=== PATIENT | female | born 1995 | race Caucasian/White ===

== ENCOUNTER 2016-10-26 16:52 | Emergency (ER) | payer BC ==
[2016-10-26 16:53] VITALS: BMI 26.2
[2016-10-26 17:03] VITALS: TEMP 99.5
[2016-10-26] MEDS ORDERED: Sodium Chloride 0.9% 1,000 ML IV STA (17:23)
--- NOTE | 2016-10-26 17:31 | ED PDOC ---
Arrival/HPI - General Chief Complaint: GI Problem Time Seen by Provider: 10/26/16 17:06 Historian: Patient - History of Present Illness Narrative History of Present Illness (Text): 10/26/16 17:31 20 year old female presents to the emergency department with nausea/vomiting, abdominal cramping, and urinary urgency. Denies vaginal bleeding or dc, denies diaparunia, denies other complaints. Symptom Onset: Gradual Symptom Course: Unchanged Modifying Factors (Text): None Associated Symptoms (Text): None Past Medical History - Provider Review Nursing Documentation Reviewed: Yes - Tetanus Immunization Tetanus Immunization: Up to Date - Past Medical History Past Medical History: No Previous - Psychiatric Hx Psychophysiologic Disorder: No Hx Substance Use: Yes (CANNABIS) - Past Surgical History Past Surgical History: No Previous - Surgical History Other/Comment: BREAST IMPLANT - Suicidal Assessment Feels Threatened In Home Enviroment: No Family/Social History - Physician Review Nursing Documentation Reviewed: Yes Family/Social History: Unknown Family HX Smoking Status: Former Smoker Hx Alcohol Use: Yes Frequency of alcohol use: Socially Hx Substance Use: Yes (CANNABIS) Hx Substance Use Treatment: No Allergies/Home Meds Allergies/Adverse Reactions: Allergies No Known Allergies Allergy (Verified 10/26/16 16:55) Review of Systems - Physician Review All systems were reviewed & negative as marked: Yes Physical Exam - Physical Exam Narrative Physical Exam (Text): - Review of Systems Constitutional: Normal. absent: Fatigue, Weight Change, Fevers Eyes: Normal ENT: Normal Respiratory: Normal absent: SOB, Cough, Sputum Cardiovascular: Normal absent: Chest pain, Palpitations, Syncope Gastrointestinal: Nausea, Vomiting, Abdominal cramping absent: Diarrhea Genitourinary: Urgency absent: Dysuria, Frequency, Hematuria Musculoskeletal: Normal. absent: Arthralgias, Back Pain, Neck Pain Skin: Normal Neurological: Normal absent: Focal Weakness Endocrine: Normal Hemo/Lymphatic: Normal Psychiatric: Normal - Physical exam Patient appears age appropriate, speaking full sentences without difficulty - Systems Exam Head: Present: Atraumatic, Normocephalic Pupils: Present: PERRL Extraocular Muscles: Present: EOMI Conjunctiva: Present: Normal Mouth: Present: Moist Mucous Membranes Neck: Present: Normal Range of Motion. No: MIDLINE TENDERNESS, Paraspinal Tenderness Respiratory/Chest: Present: Clear to Auscultation, Good Air Exchange. No: Respiratory Distress, Accessory Muscle Use, Tachypneic Cardiovascular: Present: Regular Rate and Rhythm, Normal S1, S2, Peripheral Pulses Present. No: Murmurs Abdomen: Present: Normal Bowel Sounds, No: Tenderness, Peritoneal Signs, Rebound, Guarding, Distention Back: Present: Normal Inspection. No: Midline Tenderness, Paraspinal Tenderness Upper Extremity: Present: Normal Inspection. No: Cyanosis, Edema Lower Extremity: Present: Normal Inspection. No: Edema Neurological: Present: GCS=15, Speech Normal, cranial nerves II through XII fully intact with no cerebellar abnormality, neuro-sensory fully intact. No focal neurological deficits. Skin: Present: Warm, Dry, Normal Color. No: Rashes Lymphatic: Present: OX3, NI, NC Psychiatric: Present: Alert, Oriented x 3, Normal Insight, Normal Concentration Vital Signs Reviewed: Yes Vital Signs Temp Pulse Resp BP Pulse Ox 10/26/16 18:33 69 19 115/62 100 10/26/16 16:56 99.5 F 104 H 16 113/75 97 Temperature: Afebrile Blood Pressure: Normal Pulse: Tachycardic Respiratory Rate: Normal Appearance: Positive for: Well-Appearing, Non-Toxic, Comfortable Pain Distress: None Mental Status: Positive for: Alert and Oriented X 3 Medical Decision Making ED Course and Treatment: Impression: 20 year old female presents to the emergency department with nausea/ vomiting, abdominal cramping, and urinary urgency. On physical exam, patient has no acute findings. Plan: -- Zofran -- IV fluids -- Labs -- Reassess and disposition Progress Notes: 10/26/16 18:19 no acute lab findings On reevaluation, patient reports that she feels much better and would like to be discharged home. Patient's repeat abdominal exam is soft, nontender, non distended with positive bowel sounds in all 4 quadrants and no peritoneal signs. Patient is tolerating PO without any difficulty. Pt states she understands to return to the ER right away for new or worsening symptoms or for inability to f/u with PMD or specialist as instructed. Patient states that she fully agrees with and understands discharge instructions. States that she agrees with the plan and disposition. Verbalized and repeated discharge instructions and plan. I have given the patient opportunity to ask any additional questions. - Lab Interpretations Lab Results: 10/26/16 17:45 10/26/16 17:45 Lab Results 10/26/16 17:45: Sodium 139, Potassium 3.5 L, Chloride 104, Carbon Dioxide 24, Anion Gap 15, BUN 14, Creatinine 0.8, Est GFR ( Amer) > 60, Est GFR (Non- Af Amer) > 60, Random Glucose 99, Calcium 9.4, Total Bilirubin 0.4, AST 24, ALT 25, Alkaline Phosphatase 50, Total Protein 7.4, Albumin 4.4, Globulin 3.0, Albumin/Globulin Ratio 1.5, Lipase 105 10/26/16 17:45: WBC 6.9, RBC 4.68, Hgb 14.0, Hct 41.1, MCV 87.8, MCH 29.9, MCHC 34.1, RDW 13.4, Plt Count 246, MPV 11.7 H, Gran % 54.9, Lymph % (Auto) 34.4, [place] % (Auto) 9.2 H, Eos % (Auto) 0.9 L, Baso % (Auto) 0.6, Gran # 3.80, Lymph # 2.4, [place] # 0.6, Eos # 0.1, Baso # 0.04 10/26/16 15:45: Urine Color Yellow, Urine Appearance Sl cloudy, Urine pH 5.5, Ur Specific [place] >= 1.030, Urine Protein Trace H, Urine Glucose (UA) Negative , Urine Ketones Trace H, Urine Blood Negative, Urine Nitrate Negative, Urine Bilirubin Negative, Urine Urobilinogen 0.2, Ur Leukocyte Esterase Negative, Urine RBC Negative, Urine WBC 5 - 10, Ur Epithelial Cells 10 - 12, Urine Bacteria Mod - Medication Orders Current Medication Orders: Discontinued Medications Sodium Chloride (Sodium Chloride 0.9%) 1,000 mls @ 999 mls/hr IV .Q1H1M STA Stop: 10/26/16 18:23 Last Admin: 10/26/16 17:32 Dose: 999 mls/hr Ondansetron HCl (Zofran Inj) 4 mg IVP STAT STA Stop: 10/26/16 17:24 Last Admin: 10/26/16 17:33 Dose: 4 mg - Scribe Statement The provider has reviewed the documentation as recorded by the Kaylene Last Provider Scribe Attestation: All medical record entries made by the Kaylene were at my direction and personally dictated by me. I have reviewed the chart and agree that the record accurately reflects my personal performance of the history, physical exam, medical decision making, and the department course for this patient. I have also personally directed, reviewed, and agree with the discharge instructions and disposition. Disposition/Present on Arrival - Present on Arrival Any Indicators Present on Arrival: No History of DVT/PE: No History of Uncontrolled Diabetes: No Urinary Catheter: No History of Decub. Ulcer: No History Surgical Site Infection Following: None - Disposition Have Diagnosis and Disposition been Completed?: Yes Diagnosis: Abdominal pain Disposition: HOME/ ROUTINE Disposition Time: 18:22 Patient Plan: Discharge Condition: GOOD Discharge Instructions (ExitCare): Acute Abdominal Pain (ED), Abdominal Pain ( ED) Additional Instructions: PLEASE RETURN TO THE EMERGENCY DEPARTMENT FOR NEW OR WORSENING SYMPTOMS. RETURN RIGHT AWAY IF YOU CANNOT FOLLOW UP WITH YOUR PRIMARY CARE DOCTOR, CLINIC, OR SPECIALIST IN 1-2 DAYS. Prescriptions: Nitrofurantoin Macrocrystals [Macrobid] 100 mg PO BID #14 cap Ondansetron [Zofran Odt] 4 mg PO Q6 PRN #14 odt PRN Reason: Nausea/Vomiting Referrals: PCP,NO [Primary Care Provider] - Follow up with primary Andressa Singleton MD [Staff Provider] - Follow up with primary [facility] [place] [Outside] - Follow up with primary Forms: WORK NOTE
[2016-10-26 17:49] LABS: ALB/GLOB RATIO 1.5 (1.1-1.8); ALT/SGPT 25 U/L (7-56); BILIRUBIN,TOTAL 0.4 mg/dL (0.2-1.3); BLOOD UREA NITROGEN 14 mg/dL (7-21); CALCIUM 9.4 mg/dL (8.4-10.5); CHLORIDE 104 mmol/L (98-107); GFR AFRICAN-AMERICAN > 60; SODIUM 139 mmol/L (132-148); TOTAL PROTEIN 7.4 g/dL (5.8-8.3)
[2016-10-26 17:52] LABS: ADD MANUAL DIFF? NO
[2016-10-26 17:53] LABS: BASO # 0.04 K/mm3 (0.0-2.0); BASO % 0.6 % (0.0-3.0); EOS # 0.1 (0.0-0.7); EOS % 0.9 % (1.5-5.0); GRAN % 54.9 % (50.0-68.0); HEMATOCRIT 41.1 % (36.0-48.0); LYMPH # 2.4 (1.2-3.4); LYMPH % 34.4 % (22.0-35.0); MEAN CELL VOLUME 87.8 fL (80.0-105.0); MEAN CORPUSCULAR HEMOGLOBIN 29.9 pg (25.0-35.0); MEAN CORPUSCULAR HGB CONC 34.1 g/dl (31.0-37.0); MEAN PLATELET VOLUME 11.7 fl (7.0-11.0); MONO # 0.6 (0.1-0.6); MONO % 9.2 % (1.0-6.0); PLATELET COUNT 246 10^3/uL (120.0-450.0); RED CELL DISTRIBUTION WIDTH 13.4 % (11.5-14.5); WHITE BLOOD COUNT 6.9 10^3/ul (4.5-11.0)
[2016-10-26 17:54] LABS: PH,URINE 5.5 (4.7-8.0); URINE BILIRUBIN NEGATIVE (NEGATIVE); URINE BLOOD NEGATIVE (NEGATIVE); URINE GLUCOSE (UA) NEGATIVE (NEGATIVE); URINE KETONE TRACE mg/dL (NEGATIVE); URINE LEUKOCYTE ESTERASE NEGATIVE Leu/uL (NEGATIVE); URINE PROTEIN TRACE mg/dL (<30 mg/dL); URINE UROBILINOGEN 0.2 E.U./dL (<1 E.U./dL)
[2016-10-26 17:56] LABS: URINE COLOR YELLOW (YELLOW)
[2016-10-26 17:58] LABS: ALKALINE PHOSPHATASE 50 U/L (38-133); AST/SGOT 24 U/L (15-39); CARBON DIOXIDE 24 mmol/L (21-33); GLUCOSE,RANDOM 99 mg/dL (70-110); LIPASE 105 U/L (23-300); POTASSIUM 3.5 mmol/L (3.6-5.0)
[2016-10-26 18:18] LABS: URINE APPEARANCE SL CLOUDY (CLEAR); URINE BACTERIA MOD (NEG); URINE RBC NEGATIVE /hpf (0-2)
[2016-10-26 18:33] VITALS: BP 115/62; PULSE 69; RESP 19; O2SAT 100
== END 2016-10-26 18:41 | disposition home or self-care (01) ==
LOC: ED 16:52
DX: R10.9 Unspecified abdominal pain (principal)
CPT/HCPCS: 80053; 81001; 83690; 85025; 87086; 96374; 99284; J2405; J7040

== ENCOUNTER 2017-09-27 11:24 | Emergency (ER) | payer BC ==
[2017-09-27] MEDS ORDERED: Sodium Chloride 0.9% 1,000 ML IV STA (11:30)
[2017-09-27 11:33] VITALS: BMI 27.4
[2017-09-27 11:34] VITALS: RESP 18; TEMP 97.8; O2SAT 100
--- NOTE | 2017-09-27 11:45 | ED PDOC ---
Arrival/HPI - General Chief Complaint: GI Problem Time Seen by Provider: 09/27/17 11:29 Historian: Patient - History of Present Illness Narrative History of Present Illness (Text): 09/27/17 11:47 A 21 year old female, with no significant past medical history, presents to the emergency department complaining of episodes of vomiting and diarrhea this morning. Patient reports she is currently experiencing epigastric pain here in the ER. Patient denies any fever, cough, shortness of breath, chest pain, dysuria, vaginal discharge/bleeding, or any other complaints at this time. No PMD Time/Duration: Other (this morning) Symptom Onset: Sudden Symptom Course: Unchanged Past Medical History - Provider Review Nursing Documentation Reviewed: Yes - Infectious Disease Hx of Infectious Diseases: None - Tetanus Immunization Tetanus Immunization: Up to Date - Past Medical History Past Medical History: No Previous - Neurological Hx Migraine: Yes - Psychiatric Hx Substance Use: No - Past Surgical History Past Surgical History: No Previous - Surgical History Other/Comment: breast augmentation - Anesthesia Hx Anesthesia: Yes Hx Anesthesia Reactions: No Hx Malignant Hyperthermia: No - Suicidal Assessment Feels Threatened In Home Enviroment: No Family/Social History - Physician Review Nursing Documentation Reviewed: Yes Family/Social History: No Known Family HX Smoking Status: Current Some Days Smoker Hx Alcohol Use: No Hx Substance Use: No Hx Substance Use Treatment: No Allergies/Home Meds Allergies/Adverse Reactions: Allergies No Known Allergies Allergy (Verified 10/26/16 16:55) Home Medications: Home Meds Medication Instructions Recorded Confirmed No Known Home Med 09/27/17 09/27/17 Review of Systems - Review of Systems Constitutional: absent: Fevers ENT: absent: Sore Throat Respiratory: absent: SOB, Cough Cardiovascular: absent: Chest Pain Gastrointestinal: Abdominal Pain (epigastric pain), Diarrhea, Vomiting Genitourinary Female: absent: Dysuria, Vaginal Bleeding, Vaginal Discharge Musculoskeletal: absent: Back Pain Skin: absent: Rash Neurological: absent: Headache Psychiatric: absent: Anxiety Physical Exam Vital Signs Temp Pulse Resp BP Pulse Ox 09/27/17 11:33 97.8 F 71 18 130/52 L 100 Temperature: Afebrile Blood Pressure: Normal Pulse: Regular Respiratory Rate: Normal Appearance: Positive for: Well-Appearing Pain Distress: None Mental Status: Positive for: Alert and Oriented X 3 - Systems Exam Head: Present: Atraumatic, Normocephalic Pupils: Present: PERRL Extroacular Muscles: Present: EOMI Conjunctiva: Present: Normal Mouth: Present: Moist Mucous Membranes Neck: Present: Normal Range of Motion Respiratory/Chest: Present: Clear to Auscultation, Good Air Exchange. No: Respiratory Distress, Accessory Muscle Use Cardiovascular: Present: Regular Rate and Rhythm, Normal S1, S2. No: Murmurs Abdomen: No: Tenderness, Distention, Peritoneal Signs Back: Present: Normal Inspection Upper Extremity: Present: Normal Inspection. No: Cyanosis, Edema Lower Extremity: Present: Normal Inspection. No: Edema Neurological: Present: GCS=15, CN II-XII Intact, Speech Normal Skin: Present: Warm, Dry, Normal Color. No: Rashes Psychiatric: Present: Alert, Oriented x 3, Normal Insight, Normal Concentration Medical Decision Making ED Course and Treatment: 09/27/17 11:48 Impression: 21 year old female with vomiting, diarrhea, and epigastric pain. No acute findings on physical exam. Plan: -- Labs -- Pepcid -- Toradol -- Zofran -- Fluids -- Urinalysis -- POC Urine Test -- Reassess and disposition Prior Visits: Notes and results from previous visits were reviewed. Patient was last seen in the emergency department on 10/26/2016 for nausea, vomiting, abdominal cramping , and urinary urgency. Patient was discharged home. Progress Notes: 09/27/17 13:47 On reevaluation, abdomen continues to be soft NT/ND. Patient reports that she feels better. She denies abdominal pain. She is tolerating po. She was given detailed return instructions. She denied dysuria, vaginal dc/bleeding or suprapubic pain and ua was not ordered by me. Patient to follow-up with PMD - Lab Interpretations Lab Results: 09/27/17 11:58 09/27/17 11:58 Lab Results 09/27/17 11:58: Sodium 146, Potassium 4.2, Chloride 106, Carbon Dioxide 26, Anion Gap 18, BUN 16, Creatinine 0.7, Est GFR ( Amer) > 60, Est GFR (Non- Af Amer) > 60, Random Glucose 102, Calcium 9.7, Phosphorus 3.4, Magnesium 1.9, Total Bilirubin 0.3, AST 33, ALT 37, Alkaline Phosphatase 48, Total Protein 8.6 H, Albumin 5.1 H, Globulin 3.5, Albumin/Globulin Ratio 1.5, Lipase 88 09/27/17 11:58: WBC 8.5 D, RBC 5.29, Hgb 15.7, Hct 45.9, MCV 86.8, MCH 29.7, MCHC 34.2, RDW 13.1, Plt Count 252, MPV 11.9 H, Gran % 81.1 H, Lymph % (Auto) 11.1 L, [place] % (Auto) 7.5 H, Eos % (Auto) 0.2 L, Baso % (Auto) 0.1, Gran # 6.87 H, Lymph # (Auto) 0.9 L, [place] # (Auto) 0.6, Eos # (Auto) 0.0, Baso # (Auto) 0.01 09/27/17 11:47: Urine Color Yellow, Urine Appearance Clear, Urine pH 5.5, Ur Specific [place] >= 1.030, Urine Protein Trace H, Urine Glucose (UA) Negative, Urine Ketones Trace H, Urine Blood Negative, Urine Nitrate Negative, Urine Bilirubin Negative, Urine Urobilinogen 0.2, Ur Leukocyte Esterase Trace H, Urine RBC 0 - 2, Urine WBC 2 - 5, Ur Epithelial Cells 6 - 8, Amorphous Sediment Few, Urine Bacteria Many, Urine Other [place] I have reviewed the lab results: Yes - Medication Orders Current Medication Orders: Discontinued Medications Famotidine (Pepcid) 20 mg IVP STAT STA Stop: 09/27/17 11:31 Last Admin: 09/27/17 11:54 Dose: 20 mg IVP Administration Document 09/27/17 11:54 GMD (Rec: 09/27/17 11:54 GMD [id number]) Charges for Administration # of IVP Administrations 1 Sodium Chloride (Sodium Chloride 0.9%) 1,000 mls @ 999 mls/hr IV .Q1H1M STA Stop: 09/27/17 12:30 Last Admin: 09/27/17 11:55 Dose: 999 mls/hr eMAR Start Stop Document 09/27/17 11:55 GMD (Rec: 09/27/17 11:55 GMD [id number]) Intravenous Solution Start Date 09/27/17 Start Time 11:55 End Date 09/27/17 End time 12:55 Total Infusion Time 60 Ketorolac Tromethamine (Toradol) 30 mg IVP STAT STA Stop: 09/27/17 11:31 Last Admin: 09/27/17 11:54 Dose: 30 mg MAR Pain Assessment Document 09/27/17 11:54 GMD (Rec: 09/27/17 11:54 GMD [id number]) Pain Reassessment Is this a pain reassessment? No Presence of Pain Presence of Pain Yes IVP Administration Document 09/27/17 11:54 GMD (Rec: 09/27/17 11:54 GMD [id number]) Charges for Administration # of IVP Administrations 1 Ondansetron HCl (Zofran Inj) 4 mg IVP STAT STA Stop: 09/27/17 11:31 Last Admin: 09/27/17 11:54 Dose: 4 mg IVP Administration Document 09/27/17 11:54 GMD (Rec: 09/27/17 11:54 GMD [id number]) Charges for Administration # of IVP Administrations 1 - Scribe Statement The provider has reviewed the documentation as recorded by the Kaylene Torres Provider Scribe Attestation: All medical record entries made by the Kaylene were at my direction and personally dictated by me. I have reviewed the chart and agree that the record accurately reflects my personal performance of the history, physical exam, medical decision making, and the department course for this patient. I have also personally directed, reviewed, and agree with the discharge instructions and disposition. Disposition/Present on Arrival - Present on Arrival Any Indicators Present on Arrival: No History of DVT/PE: No History of Uncontrolled Diabetes: No Urinary Catheter: No History of Decub. Ulcer: No History Surgical Site Infection Following: None - Disposition Have Diagnosis and Disposition been Completed?: Yes Diagnosis: Gastroenteritis Disposition: HOME/ ROUTINE Disposition Time: 13:48 Patient Plan: Discharge Condition: GOOD Discharge Instructions (ExitCare): Gastroenteritis (ED) Additional Instructions: Follow-up with PMD within 2 days. Return to ED if condition worsens. Forms: [email or web address] (K[place]z), WORK NOTE
[2017-09-27 12:04] LABS: BASO # 0.01 K/mm3 (0.0-2.0); BASO % 0.1 % (0.0-3.0); EOS % 0.2 % (1.5-5.0); GRAN # 6.87 (1.4-6.5); GRAN % 81.1 % (50.0-68.0); HEMOGLOBIN 15.7 g/dL (12.0-16.0); LYMPH # 0.9 (1.2-3.4); LYMPH % 11.1 % (22.0-35.0); MEAN CELL VOLUME 86.8 fl (80.0-105.0); MEAN CORPUSCULAR HEMOGLOBIN 29.7 pg (25.0-35.0); MEAN CORPUSCULAR HGB CONC 34.2 g/dl (31.0-37.0); MEAN PLATELET VOLUME 11.9 fl (7.0-11.0); MONO # 0.6 (0.1-0.6); MONO % 7.5 % (1.0-6.0); RBC 5.29 10^6/uL (3.5-6.1); RED CELL DISTRIBUTION WIDTH 13.1 % (11.5-14.5); WHITE BLOOD COUNT 8.5 10^3/ul (4.5-11.0)
[2017-09-27 12:06] LABS: PH,URINE 5.5 (4.7-8.0); URINE BILIRUBIN NEGATIVE (NEGATIVE); URINE BLOOD NEGATIVE (NEGATIVE); URINE GLUCOSE (UA) NEGATIVE (NEGATIVE); URINE LEUKOCYTE ESTERASE TRACE Leu/uL (NEGATIVE); URINE PROTEIN TRACE mg/dL (<30 mg/dL); URINE UROBILINOGEN 0.2 E.U./dL (<1 E.U./dL)
[2017-09-27 12:10] LABS: URINE APPEARANCE CLEAR (CLEAR); URINE COLOR YELLOW (YELLOW)
[2017-09-27 12:15] LABS: ALB/GLOB RATIO 1.5 (1.1-1.8); ALBUMIN 5.1 g/dL (3.0-4.8); ALT/SGPT 37 U/L (7-56); AST/SGOT 33 U/L (14-36); BLOOD UREA NITROGEN 16 mg/dL (7-21); CALCIUM 9.7 mg/dL (8.4-10.5); GFR AFRICAN-AMERICAN > 60; GFR NON-AFRICAN AMERICAN > 60; LIPASE 88 U/L (23-300)
[2017-09-27 12:34] LABS: URINE AMORPHOUS SEDIMENT FEW; URINE BACTERIA MANY (NEG); URINE RBC 0 - 2 /hpf (0-2)
[2017-09-27 13:51] VITALS: BP 128/59; PULSE 68
== END 2017-09-27 14:10 | disposition home or self-care (01) ==
LOC: ED 11:24
DX: K52.9 Noninfective gastroenteritis and colitis, unspecified (principal)
CPT/HCPCS: 80053; 81001; 83690; 83735; 84100; 85025; 87086; 96361; 96374; 96375; 99284; J1885; J2405; J7040